=== PATIENT | male | born 1965 | race Two or more races ===

== ENCOUNTER 2020-09-25 12:38 | Outpatient (REF) | payer MEDICAID, OTHER, SELFPAY | END 2020-09-25 12:39 | disposition home or self-care (01) | LOC: HO.LAB 12:38 | PROVIDERS: Visit Provider Internal Medicine | DX: Z20.828 Contact with and (suspected) exposure to other viral communicable diseases (principal) | CPT/HCPCS: C9803; U0003 ==

== ENCOUNTER 2023-04-04 12:24 | Outpatient (REF) | payer MEDICAID, OTHER, SELFPAY ==
--- NOTE | ~2023-04-04 | XR_ITS ---
EXAMINATION: XR HAND, RIGHT CLINICAL INFORMATION: Pain. COMPARISON: None available. TECHNIQUE: PA and lateral views of the right hand. FINDINGS: Bony alignment and mineralization are normal. There is mild osteoarthritic change of the interphalangeal joint of the thumb, of the second, fourth and fifth distal interphalangeal joints, and of the second and third proximal interphalangeal joints. There is minimal osteoarthritic change of the second and third metacarpophalangeal joints. No fracture or dislocation is seen. The proximal and distal carpal rows are intact. No abnormal bone erosion is seen. There is no focal soft tissue swelling, gas or foreign body. XR/XR hand LT 2V IMPRESSION: Mild osteoarthritic change is seen of the fingers and hand, as detailed. No fracture or dislocation is seen. There is no abnormal bone erosion. EXAMINATION: XR HAND, LEFT CLINICAL INFORMATION: Pain. COMPARISON: None available. TECHNIQUE: PA and lateral views of the left hand. FINDINGS: Bony alignment and mineralization are normal. There is mild osteoarthritic change of the interphalangeal joint of the thumb. There is mild osteoarthritic change of the third through fifth distal interphalangeal joints and of the fourth and fifth metacarpophalangeal joints. No fracture or dislocation is seen. The proximal and distal carpal rows are intact. There is no abnormal bone erosion. No focal soft tissue swelling, gas or foreign body is seen. IMPRESSION: Mild osteoarthritic change is seen of the left fingers and hand, as detailed. No fracture or dislocation is seen. This no abnormal bony erosive change.
--- NOTE | ~2023-04-04 | XR_ITS ---
EXAMINATION: XR SHOULDER, RIGHT CLINICAL INFORMATION: Pain and limited range of motion of 6 months duration. COMPARISON: Radiographs dated 04/29/2015. TECHNIQUE: AP external rotation, Grashey, scapular Y, and axillary views of the right shoulder. FINDINGS: The bones and soft tissues are normal. No fracture. Glenohumeral and acromioclavicular alignment is anatomic with normal joint space. No abnormal soft tissue calcifications. XR/XR shoulder RT min 2V IMPRESSION: Normal right shoulder.
--- NOTE | ~2023-04-04 | XR_ITS ---
EXAMINATION: XR HAND, RIGHT CLINICAL INFORMATION: Pain. COMPARISON: None available. TECHNIQUE: PA and lateral views of the right hand. FINDINGS: Bony alignment and mineralization are normal. There is mild osteoarthritic change of the interphalangeal joint of the thumb, of the second, fourth and fifth distal interphalangeal joints, and of the second and third proximal interphalangeal joints. There is minimal osteoarthritic change of the second and third metacarpophalangeal joints. No fracture or dislocation is seen. The proximal and distal carpal rows are intact. No abnormal bone erosion is seen. There is no focal soft tissue swelling, gas or foreign body. XR/XR hand RT 2V IMPRESSION: Mild osteoarthritic change is seen of the fingers and hand, as detailed. No fracture or dislocation is seen. There is no abnormal bone erosion. EXAMINATION: XR HAND, LEFT CLINICAL INFORMATION: Pain. COMPARISON: None available. TECHNIQUE: PA and lateral views of the left hand. FINDINGS: Bony alignment and mineralization are normal. There is mild osteoarthritic change of the interphalangeal joint of the thumb. There is mild osteoarthritic change of the third through fifth distal interphalangeal joints and of the fourth and fifth metacarpophalangeal joints. No fracture or dislocation is seen. The proximal and distal carpal rows are intact. There is no abnormal bone erosion. No focal soft tissue swelling, gas or foreign body is seen. IMPRESSION: Mild osteoarthritic change is seen of the left fingers and hand, as detailed. No fracture or dislocation is seen. This no abnormal bony erosive change.
--- NOTE | ~2023-04-04 | XR_ITS ---
EXAMINATION: XR KNEE, RIGHT CLINICAL INFORMATION: Pain and weakness. COMPARISON: None available. TECHNIQUE: AP standing, lateral and axial views of the right knee are submitted. FINDINGS: No fracture or joint effusion. Alignment is anatomic. Joint spaces are maintained. No abnormal soft tissue calcification. XR/XR knee RT 3V IMPRESSION: Normal right knee.
== END 2023-04-04 12:25 | disposition home or self-care (01) ==
LOC: HO.HHCX 12:24
PROVIDERS: Visit Provider Internal Medicine
DX: M25.541 Pain in joints of right hand (principal); M25.542 Pain in joints of left hand; M25.531 Pain in right wrist; M25.532 Pain in left wrist; M25.511 Pain in right shoulder; M25.561 Pain in right knee
CPT/HCPCS: 73030; 73120; 73562

== ENCOUNTER 2023-04-25 09:04 | Outpatient (REF) | payer MEDICAID, OTHER, SELFPAY ==
[2023-04-25 11:50] LABS: MANUAL DIFF FLAG NO
[2023-04-25 12:12] LABS: Basophils Absolute Auto 0.1 X10*3/uL (0.0-0.2); Basophils Percent Auto 0.6 % (0-2); Eosinophils Absolute Auto 0.2 X10*3/uL (0.0-0.4); Eosinophils Percent Auto 2.4 % (0-4); Hematocrit 43.9 % (42.0-52.0); Hemoglobin 13.6 g/dl (14.0-18.0); Imm Gran Abs Auto 0.04 X10*3/uL (0.00-0.03); Imm Gran Pct Auto 0.5 % (0.0-0.4); Lymphocytes Absolute Auto 2.3 X10*3/uL (1.2-4.9); Lymphocytes Percent Auto 26.9 % (20-40); Mean Corpuscular Hemoglobin 26.3 pg (27.0-33.0); Mean Corpuscular Volume 84.9 fL (80.0-98.0); Mean Platelet Volume 10.8 fL (9.4-12.4); Monocytes Absolute Auto 0.8 X10*3/uL (0.1-1.2); Monocytes Percent Auto 8.9 % (2-11); Neutrophils Absolute Auto 5.2 x10*3/uL (2.0-8.3); Neutrophils Percent Auto 60.7 % (45-73); Platelet Count 372 X10*3/uL (160-400); Red Blood Count 5.17 X10*6/uL (4.60-5.80); Red Cell Distribution Width 13.7 % (11.0-16.0); White Blood Count 8.6 X10*3/uL (4.8-10.8)
[2023-04-25 12:51] LABS: Erythrocyte Sedimentation Rate 12 MM/HR (0-15)
[2023-04-25 12:54] LABS: HBS Num1 > 1000.00 mIU/mL (0-7.99); HBc Num1 0.37 S/CO (0.00-0.79); HBsAGNum1 0.34 S/CO (0.00-0.99); HIV AB/AG Nonreactive (Nonreactive); HIV Num 1 0.05 S/CO (0.00-0.99); Hepatitis A Antibody IgM 0.26 Index (0-0.79); Hepatitis B Core Antibody Nonreactive (Nonreactive); Hepatitis B Surface Antigen Negative (Negative); ~HepC Num1 0.08 S/CO (0.00-0.79); ~Hepatitis A Antibody IgM Nonreactive (Nonreactive); ~Hepatitis B Surface Antibody REACTIVE (Nonreactive); ~Hepatitis C Antibody Nonreactive (Nonreactive)
[2023-04-28 02:03] LABS: TS Negative Control Passed; TS Panel A 0; TS Panel B 0; TS Positive Control Passed; TSpotTB Negative (Negative)
== END 2023-04-25 09:05 | disposition home or self-care (01) ==
LOC: HO.HHCL 09:04
PROVIDERS: Visit Provider Internal Medicine
DX: Z11.4 Encounter for screening for human immunodeficiency virus [HIV] (principal); Z11.1 Encounter for screening for respiratory tuberculosis; M25.50 Pain in unspecified joint
CPT/HCPCS: 36415; 85025; 85652; 86481; 86704; 86706; 86709; 86803; 87340; 87389

== ENCOUNTER 2024-04-28 13:04 | Emergency (ER) | payer MEDICAID, OTHER, SELFPAY ==
--- NOTE | ~2024-04-28 | XR_ITS ---
EXAMINATION: XR HIP, LEFT CLINICAL INFORMATION: Pain. COMPARISON: None available. TECHNIQUE: AP view the pelvis as well as AP and frog-leg lateral views of the left hip. FINDINGS: No acute fracture or dislocation. Mild bilateral hip joint space narrowing with tiny marginal osteophytes. No osseous erosion. No abnormal soft tissue calcification. No evidence of femoral head avascular necrosis. XR/XR hip LT w PEL1V IMPRESSION: Mild bilateral hip osteoarthritis.
--- NOTE | 2024-04-28 13:07 | ED.GENADULT ---
HPI - General Adult General Chief complaint: Extremity Injury, Lower Stated complaint: L Leg Pain No Injury Time Seen by Provider: 04/28/24 13:51 Source: patient Mode of arrival: ambulatory Limitations: no limitations History of Present Illness ED Provider: Socorro Cunha APRN HPI narrative: 58-year-old male who is previously healthy presents the ER with complaints of left hip pain which began after he was stepping out of his car yesterday. Patient reports pain is worsened with lifting the left leg. There is no associated weakness, numbness or tingling of the extremity. Patient has been taking ibuprofen at home with continued pain Related Data Previous Rx's ?Medication ?Instructions ?Recorded cyclobenzaprine 10 mg tablet 10 mg PO TID PRN muscle spasm #15 04/28/24 tabs ibuprofen 600 mg tablet 600 mg PO Q6H PRN fever or pain 04/28/24 #30 tabs Allergies Allergy/AdvReac Type Severity Reaction Status Date / Time No Known Allergies Allergy Verified 04/28/24 13:10 Review of Systems Review of Systems: Yes all other systems are reviewed and are negative Constitutional: Constitutional: Reports no additional constitutional complaints, Denies body ache(s), Denies chills, Denies fever(s), Denies headache(s) and Denies weakness Eyes: Eyes: Reports no additional eye complaints and Denies change in vision ENT: Reports system reviewed and no additional complaints, except as documented, Denies dizziness, Denies headache(s), Denies nasal congestion, Denies nasal discharge and Denies neck pain Cardiovascular: Cardiovascular: Reports no additional cardiovascular complaints, Denies chest pain, Denies leg edema and Denies dyspnea Respiratory: Respiratory: Reports no additional respiratory complaints, Denies cough and Denies dyspnea Gastrointestinal: Gastrointestinal: Reports no additional gastrointestinal complaints, Denies abdominal pain, Denies diarrhea, Denies nausea and Denies vomiting Genitourinary: Genitourinary: Denies urinary incontinence Musculoskeletal: Musculoskeletal: Reports no additional musculoskeletal complaints, Denies back pain, Reports arthralgias, Denies joint swelling, Denies limited range of motion, Denies neck pain, Denies numbness and Denies tingling Integumentary/Breasts: Skin/Breast: Reports system reviewed and no additional complaints, except as docu and Denies rash Neurologic: Reports system reviewed and no additional complaints, except as documented, Denies Abnormal speech present, Denies dizziness, Denies headache(s), Denies numbness, Denies tingling and Denies weakness [facility] Past Medical History Attestation statement: The following information was validated with the patient. Source: old records reviewed and nursing notes reviewed Social History Social History Advance Directives: No Advance Directives Information Provided: No Physical Exam ED Vital Signs: Vital Signs - 24 hr 04/28/24 13:09 Temperature 98.7 F Pulse Rate 120 H Respiratory Rate 16 Blood Pressure 137/88 Pulse Oximetry 95 Oxygen Delivery Method Room Air BMI result Body Mass Index 28.2 Const General: cooperative, healthy appearing, comfortable and no acute distress Orientation/consciousness: patient oriented x3 Limitations: no limitations HENMT Head: Yes normal to inspection Ears: hearing grossly normal bilaterally General nose exam: Normal external nose present Face and sinus: Yes normal facial exam Mouth: Normal oral and palatal mucosa present Throat: Yes posterior oropharynx normal Eyes General: appearance normal, both eyes and all related structures Pupils: Equal, round and reactive pupils present Neck Neck: Yes normal visual inspection Chest Chest palpation & inspection: normal inspection of the chest Resp Effort & Inspection: normal respiratory effort Auscultation: clear to auscultation bilaterally Cardio Rate: regular rate Rhythm: regular rhythm Peripheral pulses: Peripheral pulses 2+ throughout GI Inspection: Yes normal to inspection Palpation (GI): Soft to palpation and nontender Auscultation: normal bowel sounds General: Yes no CVA tenderness Back/Spine/Pelvis Back: no CVA tenderness Thoracic/Lumbar Spine: thoracic and lumbar spine normal to inspection Skin General skin exam: no rashes or lesions noted Neuro General: patient oriented x3, no focal motor deficits and normal sensation to monofilament Cranial nerves: Yes Equal, round and reactive pupils present Cognition (Neuro): normal cognition Speech: No Abnormal speech present Gait exam (Neuro): Normal gait present Motor exam (neuro): 5/5 motor strength present throughout Extrem Other: There is pain on palpation of the left anterior hip which is worsened with left straight leg raise as well as lifting of the left thigh with flexion of the left knee. There is no shortening, rotation deformity. There are normal DP and PT pulses distally. Normal distal sensation. General: Yes normal to inspection Course Course Course Narrative: RME performed by Zaira Jones PA-C. Patient is a 58 year old assigned male at presenting to the emergency department with left hip / groin pain. Detailed physical exam and review of systems are deferred to the advertising agent. Imaging ordered. Patient placed back in the waiting room pending room availability and results. Reevaluation(s) Reevaluation #1: X-ray shows bilateral osteoarthritis. Exam is more consistent with hip flexor strain. Patient will be discharged home with NSAID and muscle relaxant. Reviewed worrisome signs and symptoms of when to return to the emergency room. Comfortable plan for discharge home. Medical Decision Making Medical Decision Making MDM Narrative: 58-year-old male who is previously healthy presents the ER with complaints of left hip pain which began after he was stepping out of his car yesterday. Patient reports pain is worsened with lifting the left leg. There is no associated weakness, numbness or tingling of the extremity. Patient has been taking ibuprofen at home with continued pain there is pain on palpation of the left anterior hip which is worsened with left straight leg raise as well as lifting of the left thigh with flexion of the left knee. There is no shortening, rotation deformity. There are normal DP and PT pulses distally. Normal distal sensation. Likely hip flexor strain. Will check x-rays due to history of trauma Differential Diagnosis Differential Diagnoses: The differential diagnosis associated with the presentation includes Hip flexor strain Less likely fracture, dislocation, vascular injury Admission/Observation Consideration of admission/observation: Escalation of care including admission/observation considered Hip flexor strain Less likely fracture, dislocation, vascular injury requiring advanced imaging, urgent orthopedic consultation Independent Interpretation I performed an independent interpretation of an: Plain X-Ray Interpretation: I independently reviewed the x-ray and agree with the radiology report Radiology Impression Discussion of test interpretation with radiology: I have reviewed the radiologist's reading. Radiologist Impression: [address] [address] XRay Report Signed Patient: Javed Dorantes MR#: [id number] : 1965 Acct:[id number] Age/Sex: 58 / M ADM Date: 04/28/24 Loc: HO.ED Attending Dr: Ordering Physician: Zaira Jones Date of Service: 04/28/24 Procedure(s): XR hip LT w PEL1V Accession Number(s): [id number] cc: Zelda Funez MD; Zaira Jones~ EXAMINATION: XR HIP, LEFT CLINICAL INFORMATION: Pain. COMPARISON: None available. TECHNIQUE: AP view the pelvis as well as AP and frog-leg lateral views of the left hip. FINDINGS: No acute fracture or dislocation. Mild bilateral hip joint space narrowing with tiny marginal osteophytes. No osseous erosion. No abnormal soft tissue calcification. No evidence of femoral head avascular necrosis. XR/XR hip LT w PEL1V IMPRESSION: Mild bilateral hip osteoarthritis. Tests considered The following testing was considered but not selected: Less likely fracture, dislocation, vascular injury requiring advanced imaging, Prescription Management I considered prescription management with: Pain Medication Discharge Plan Discharge Clinical Impression: Strain of flexor muscle of left hip Patient Disposition: Home, Self-Care Instructions: Groin Strain (ED) Additional Instructions: Heat or ice to the area Gentle stretching Take medications as prescribed Follow-up with your doctor for any continued symptoms Prescriptions: New ibuprofen 600 mg tablet 600 mg PO Q6H PRN (Reason: fever or pain) Qty: 30 0RF cyclobenzaprine 10 mg tablet 10 mg PO TID PRN (Reason: muscle spasm) Qty: 15 0RF Print Language: Sinhala
[2024-04-28 13:09] VITALS: BP 137/88; PULSE 120; RESP 16; TEMP 37.1; O2SAT 95; BMI 28.2
[2024-04-28 14:56] VITALS: BP 130/81; PULSE 100; RESP 19; TEMP 36.4; O2SAT 98
[2024-04-28 14:59] VITALS: BP 130/81; PULSE 100; RESP 19; TEMP 36.4; O2SAT 98
== END 2024-04-28 15:00 | disposition home or self-care (01) ==
PROVIDERS: Emergency Provider Emergency Medicine; PCP Internal Medicine
DX: S76.012A Strain of muscle, fascia and tendon of left hip, initial encounter (principal); X50.9XXA Other and unspecified overexertion or strenuous movements or postures, initial encounter; Y93.89 Activity, other specified; Y92.810 Car as the place of occurrence of the external cause; Y99.9 Unspecified external cause status
CPT/HCPCS: 73502; 99283

== ENCOUNTER 2025-01-07 11:01 | Outpatient (REF) | payer MEDICAID, OTHER, SELFPAY ==
[2025-01-07 12:34] LABS: MANUAL DIFF FLAG NO
--- OUTSIDE RECORDS SUMMARY | 2025-01-07 12:34 | XMS_ITS | Encounter Summary ---
Author Organization [facility] Address [address] [place] [address] Care Team Providers Care Warehouse Shipping Receiving Clerk Name Role Phone Zelda Funez MD Primary Care Provider + Encounter Details Date Type Department Care Team (Latest Contact Info) Description 02/23/2022 Abstract [facility] CONVERSIONS Dental, Provider, DDS Social History Tobacco Use Types Packs/Day Years Used Date Smoking Tobacco: Never Assessed Sex and Gender Information Value Date Recorded Sex Assigned at Male 08/09/2022 10:19 AM EDT Legal Sex Male 10:19 AM EDT Gender Identity Male 08/09/2022 10:19 AM EDT Sexual Orientation Straight 08/09/2022 10 :19 AM EDT documented as of this encounter Plan of Treatment Upcoming Encounters Date Type Department Care Team (Late st Contact Info) Description 06/04/2025 1:00 PM EDT Office Visit [facility] [address] [place] [address] Jacob, Jolene [address] [place] [address] documented as of this encounter Visit Diagnoses Not on filedocumented in this encounter Care Teams Warehouse Shipping Receiving Clerk Relationship Specialty Start Date End Date Zelda Funez MD [address], [place] [phone] PCP - General Family Medicine 06/19/18 documented as of this encounter
--- OUTSIDE RECORDS SUMMARY | 2025-01-07 12:34 | XMS_ITS | Clinical Summary ---
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 Do not crush, chew, or split. 120 tablet 1 3 Active meloxicam (Mobic) 15 MG tabletIndications :Polyarthralgia TAKE 1 TABLET(15 MG) BY MOUTH IN THE MORNING 30 tablet 3 Active cholecalciferol (Vitamin D-3) 50 MCG (1999 UT) tablet Take 1 tablet by mouth in the morning. 4 Active methotrexate 2.5 MG tablet Take 20 mg by mouth 1 (one) time per week. 4 Active folic acid (Folvite) 1 MG tablet Take 1 mg by mouth Once per day. 3 Active amLODIPine-valsar matthews (Exforge) 5-160 MG tabletIndications :Essential hypertension TAKE 1 TABLET BY MOUTH EVERY DAY 90 tablet 3 5 Active Active Problems Problem Noted Date Diagnosed Date Dizziness 12/31/2024 Assessment & Plan (12/31/2024 10:30 AM EDT): Patient had hyperglycemia today despite being fasting. I explained regarding importance of a small infection meals, avoid recurrent fasting., Favor small unfractioned meals that contain both protein and fiber, lower carbohydrate consumption and improve hydration. Advised to check blood pressure at home and call back as needed symptoms or low BP below 100/60 Primary osteoarthritis of left hip 05/07/2024 Assessment & Plan (05/07/2024 1:07 PM EDT): It seems to have resolved with 1w NSAIDs Continue meloxicam for at least 1w with prn exacerbations or can take Tylenol I explained to him that this is different than his RA. Re consult prn, may need referral to PT if he becomes more symptomatic. Rheumatoid arthritis involvi ng multiple sites with positive rheumatoid factor 12/13/2023 Assessment & Plan (12/31/2024 10:31 AM EDT): Doing well on Methotrexate + Folic acid. Follow-up with rheumatology Advised regarding zoster vaccine and MMR booster due to potential immunosuppression with methotrexate he will follow-up at the closest pharmacy Assessment & Plan (12/13/2023 1:22 PM EST): Doing well on Methotrexate + Folic acid. Continue Prednisone x2 weeks and follow up with Rheumatology. Will have Tdap today, declined Zoster and COVID vaccines. Partial loss of teeth 06/14/2023 Dental calculus 05/17/2023 Localized gingival recession 05/17/2023 Lipoma of neck 04/04/2023 Assessment & Plan (04/04/2023 1:24 PM EDT): Will fu at next appointment consider referral to surgery if increase in size Chronic pain of right knee 04/04/2023 Chronic right shoulder pain 04/01/2023 Mass of neck 04/01/2023 Vitamin D deficiency 07/25/2018 Assessment & Plan (12/31/2024 10:30 AM EDT): On vitamin D supplementation daily. Follow-up vitamin D levels in 3 months and follow-up with rheumatology. Assessment & Plan (05/02/2023 1:16 PM EDT): Needs vit d supplementation for three months only Benign essential hypertension 08/30/2017 Assessment & Plan (12/31/2024 9:57 AM EDT): Controlled. Compliant w/meds Continue amlodipine/valsartan Counseled re low salt diet/increase moderate physical activity. Check home BP BIW and prn CP/LANDAVERDE/NAIR Non smoking patient. FU in 6m Assessment & Plan (05/07/2024 1:06 PM EDT): Controlled. Compliant w/meds Continue amlodipine/valsartan Counseled re low salt diet/increase moderate physical activity. Check home BP BIW and prn CP/LANDAVERDE/NAIR Non smoking patient. FU in 6m Assessment & Plan (12/13/2023 10:16 AM EST): Stage I. Likely related to Prednisone. Will follow up with me in 3-4 months. Counseled to check BP at home. Call back prn if BP is above 150/100 Assessment & Plan (07/26/2023 12:52 PM EDT): Controlled. Compliant w/meds Continue amlodipine - valsartan same dose Counseled re low salt diet/increase moderate physical activity. Check home BP BIW and prn CP/LANDAVERDE/NAIR Non smoking patient. Assessment & Plan (05/02/2023 1:16 PM EDT): Stage 1/borderline uncontrolled today Counseled re low salt diet/increase moderate physical activity. Check home BP BIW and prn CP/LANDAVERDE/NAIR Non smoking patient. Continue amlodipine/valsartan same dose and FU with me in 3 months Assessment & Plan (04/04/2023 1:25 PM EDT): Borderline controlled, pt to check BP twice per week and fu with me in 1 month with labs Continue medications. Counseled re low salt diet/increase moderate physical activity. Check home BP BIW and prn CP/LANDAVERDE/NAIR Non smoking patient. Seasonal allergic rhinitis 08/30/2017 Resolved Problems Problem Noted Date Diagnosed Date Resolved Date Chronic pain of both wrists 04/04/2023 05/07/2024 Right anterior shoulder pain 04/04/2023 05/07/2024 Joint pain in both hands 04/04/2023 Polyarthralgia 04/04/2023 05/07/2024 Assessment & Plan (07/26/2023 12:54 PM EDT): Seems to be related to RA, major compromise in both hands Intake carmita with rheumatology next month Received Influenza, advised about zoster booster, and declined Covid IZ today Assessment & Plan (05/02/2023 1:04 PM EDT): most likely RA. It sewems to be controlled with NSAIDS only for now COntinue NSAIDS for two more months and FU PRN with me. APpointment for [facility]am[facility] at [facility] scheduled for 08/05/23 at 1 pm. Pt is aware that he may need to arrange for transportation, will see if we can submit transportation request. FU with me in 3 months Assessment & Plan (04/04/2023 1:26 PM EDT): r/o RA given symmmetric arthiris on both hands order x-rays of both hands take tylenol 650-1300mg BID x2 weeks then PRN prevention of accidents, wear gloves at work Encounters Date Type Department Care Team Description 12/31/2024 9:45 AM EDT Office Visit [facility] [address] [place] [phone] Zelda Funez MD Benign essential hypertension (Primary Dx); Rheumatoid arthritis involving multiple sites with positive rheumatoid factor (CMS/HCC); Vitamin D deficiency; Dizziness 12/31/2024 Telephone [facility] [address] [place] [phone] Zelda Funez MD Lab Orders 12/31/2024 Travel 12/24/2024 Patient Outreach [facility] [address] [place], [place] [phone] Zelda Funez MD Pre-visit Planning (SDOH negative, Tobacco screening negative.) 12/03/2024 1:00 PM EST Office Visit [facility] [address] [place] [address] [phone] Jolene James Dental calculus (Primary Dx) 11/05/2024 Refill [facility] [address] [place] [address] Zelda Funez MD Essential hypertension 11/02/2024 Telephone [facility] [address] [place] [address] Marie Felix MA Chart prep 10/24/2024 Patient Outreach [facility] [address] [place] [address] Zelda Funez MD Pre-visit Planning ((Unable to reach for PVP screening, LVM)) from Last 3 Months Immunizations Name Administration Dates Next Due Hep B, adult 05/01/2010,12/31/2008,12/03/2008 Influenza injectable quadriv alent IIV4 with preservative 07/25/2018,08/30/2017,07/29/2015 Influenza injectable quadriv alent preservative free 07/26/2023,08/21/2019,12/06/2016 Influenza, IIV3, injectable 08/19/2014, 1 Influenza, Split (incl. frank fied surface antigen) 09/19/2012 MMR 07/25/2007 TD (adult), 2 Lf tetanus tox oid, preservative free, adsorbed 12/13/2023 Tdap 11/07/2012 Varicella 04/15/2009,12/03/2008 Social History Tobacco Use Types Packs/Day Years Used Date Smoking Tobacco: Never Smokeless Tobacco: Never Tobacco Cessation:Counseling Given: Not Answered Alcohol Use Standard Drinks/Week Comments Yes 0 (1 standard drink = 0.6 oz pur e alcohol) oca Housing Stability Answer Date Recorded What is your housing situation today? I have jamarcus robles 04/27/[address] you li ve. Do you have problems with any of the following? None of the above 04/27/2024 Food Insecurity Answer Date Recorded Within the past 12 months, y ou worried that your food would run out before you got money to buy more: Never True 04/27/2024 Within the past 12 months,th e food you bought just didn't last and you didn't have enough money to get more: Never True Transportation Answer Date Recorded In the past 12 months, has l ack of transportation kept you from medical appts, meetings, work or from getting things needed for daily living? No 04/27/2024 Utilities Answer Date Recorded In the past 12 months, has t he electric, gas, oil or water company threatened to shut off services in your home? No 04/27/2024 Depression Answer Date Recorded Patient Health Questionnaire-2 Score 0 04/04/2023 Internet Access Answer Date Recorded Internet Access Q1 Yes 06/11/2024 Internet Access Q2 Not on file 06/11/2024 Sex and Gender Information Value Date Recorded Sex Assigned at Male 08/09/2022 10:19 AM EDT Legal Sex Male 10:19 AM EDT Gender Identity Male 08/09/2022 10:19 AM EDT Sexual Orientation Straight 08/09/2022 10 :19 AM EDT Last Filed Vital Signs Vital Sign Reading Time Taken Comments Blood Pressure 149/84 12/31/2024 9:32 AM EDT Pulse 84 12/31/2024 9:32 AM EDT Temperature 35.9 ??C (96.7 ??F) 12/31/2024 9:32 AM ED T Respiratory Rate 16 05/07/2024 11:01 AM EDT Oxygen Saturation 100% 12/31/2024 9:32 AM EDT Inhaled Oxygen Concentration - - Weight 88.5 kg (195 lb) 12/31/2024 9:32 AM EDT Height 167.6 cm (5' 6 ) 12/31/2024 9:32 AM EDT Body Mass Index 31.47 12/31/2024 9:32 AM EDT Plan of Treatment Upcoming Encounters Date Type Department Care Team (Late st Contact Info) Description 06/04/2025 1:00 PM EDT Office Visit [facility] [address] [place] [address] Jacob, Jolene [address] [place] [address] Health Maintenance Due Date Last Done Comments CT Colonography 1967 Colonoscopy 1967 Colorectal Cancer Screening 1967 FIT DNA/Cologuard 1967 FIT 1967 FOBT 1967 Sigmoidoscopy 1967 Alcohol/Substance Use Screening 1979 Pneumococcal Vaccine: 50+ Years (1 of 1 - PCV) 12/24/2017 Zoster Vaccines (1 of 2) 12/24/2017 Depression Screening 04/04/2024 04/04/2023, 04/04/20 COVID-19 Vaccine (3 - 2023- season) 2024 02/24/2021, 01/27/2021 Dental Oral Exam 11/30/2024 05/29/2024, 02/2023, 02/23/2022, Additional history exists Dental X-Ray: Bitewings 05/30/2025 05/29/20 24, 05/17/2023, 02/23/2022, Additional history exists Dental Prophylaxis 06/03/2025 12/03/2024, 0 05/29/2024, 05/17/2023, Additional history exists SDOH Screening 12/24/2025 12/24/2024 Tobacco Screening 12/31/2025 12/31/2024 Dental X-Ray: Full Mouth 05/18/2026 023, 02/23/2022, 04/21/2015 Lipid Panel 09/07/2026 09/07/2021, 04/01/2020 DTaP/Tdap/Td Vaccines (3 - Td or Tdap) 12/12/2033 12/13/2023, 11/07/2012 RSV Patients and Patients Aged 60 years or older (1 - 1-dose 75+ series) 12/24/2042 Hepatitis B Vaccines Completed 05/01/2010, 12/31/2008, 12/03/2008 HIV Screening Completed 04/25/2023 Hepatitis C Screening Completed 04/25/2023 Influenza Vaccine Completed 09/19/2024, , 08/21/2019, Additional history exists HIB Vaccines Aged Out No longer eligi ble based on patient's age to complete this topic HPV Vaccines Aged Out No longer eligi ble based on patient's age to complete this topic Hepatitis A Vaccines Aged Out No long er eligible based on patient's age to complete this topic IPV Vaccines Aged Out No longer eligi ble based on patient's age to complete this topic Meningococcal Vaccine Aged Out No radhika chito eligible based on patient's age to complete this topic RSV under 20 months Aged Out No longe r eligible based on patient's age to complete this topic Rotavirus Vaccines Aged Out No longer eligible based on patient's age to complete this topic Procedures Procedure Name Priority Date/Time Associated Diagnosis Comments POCT HEMOGLOBIN Routine 12/31/2024 10:18 AM EDT Dizziness POCT GLUCOSE Routine 12/31/2024 10:18 AM EDT Dizziness CASE PRESENTATION, DETAILED AND EXTENSIVE TREATMENT PLANNING Routine 12/03/2024 1:00 PM EST Dental calculus ORAL HYGIENE INSTRUCTIONS Routine 12/03/2024 1:00 PM EST Dental calculus PROPHYLAXIS - ADULT Routine 12/03/2024 1 :00 PM EST Dental calculus BITEWINGS - 4 RADIOGRAPHIC IMAGES Routine 05/29/2024 10:00 AM EDT Partial loss of teeth, unspecified edentulism class Dental calculus Localized gingival recession PERIODIC ORAL EVALUATION - ESTABLISHED PATIENT Routine 05/29/2024 10:00 AM EDT INTRAORAL - COMPLETE SERIES OF RADIOGRAPHIC IMAGES Routine 05/17/2023 1:00 PM EDT Dental calculus Localized gingival recession HEPATITIS PANEL, GENERAL Routine 04/25/2023 9:09 AM EDT Polyarthralgia HIV ANTIBODY/ANTIGEN ([place] DPH) Routine 04/25/2023 9:09 AM EDT Polyarthralgia LIPID PANEL, STANDARD Routine 09/07/2021 10:00 AM EST from Last 3 Months or Most Recently Relevant to Health Maintenance Results * POCT Glucose (12/31/2024 10:18 AM EDT) Glucose Blood, POC 135 60 - 200 mg/dL QC Media Lot # [id number] Lot# Expiration Date 101,425 Blood Capillary blood specimen / Unknown 12/31/2024 10:18 AM EDT Zelda Funez MD POINT OF CARE TE ST ENTER/EDIT ORDERABLES Edited Result - Final * POCT Hemoglobin (12/31/2024 10:18 AM EDT) Hemoglobin 13.9 13.0 - 17.0 QC Media Lot # [id number] Lot# Expiration Date Blood 12/31/2024 10:1 8 AM EDT Zelda Funez MD POINT OF CARE TEST ENTER /EDIT ORDERABLES Final Result * HIV Ab/Ag ([facility]) (04/25/2023 9:09 AM EDT) Pathologist [facility] HIV AB/AG Nonreactive Nonreactive [facility] Comment:HIV-1 p24 Ag and/or HIV-1/HIV-2 Ab not detected.A test result that is nonreactive does not exclude thepossibility of exposure to or infection with HIV-1 and/orHIV-2. Nonreactive results in this assay for individualswith prior exposure to HIV-1 and/or HIV-2 may be due toantigen and antibody levels that are below the limit ofdetection of this assay.The Beck Prepress Operator HIV Ag/Ab Combo assay result andsupplemental assay results should be interpreted inconjunction with the patient's clinical presentation,history and other laboratory results. If the results areinconsistent with clinical evidence, additional testing issuggested to confirm the result. 04/25/2023 9:09 AM EDT 04/25/2023 11:44 AM EDT Result [facility] External Provider LAB BLO OD ORDERABLES Final Result [facility] [address] [place] [phone] * Hepatitis Panel, General (04/25/2023 9:09 AM EDT) Pathologist [facility] Hepatitis A IgM Nonreactive Nonreactive [facility] Comment:IgM antibodies to LANDAVERDE V not detected; does not exclude earlyacute or recovered HAV infection. ~Hepatitis B Surface Antibody REACTIVE Nonreactive [facility] Comment:REACTIVE: > 11.99 mI U/mL Hepatitis B Core Antibody Nonreactive Nonreactive [facility] Hepatitis C Antibody Nonreactive Nonreactive [facility] Comment:Antibodies to HCV no t detected; does not exclude early acuteHCV infection. Hepatitis B Surface Ag Negative Negative [facility] 04/25/2023 9:09 AM EDT 04/25/2023 11:44 AM EDT [facility] External Provider LAB BLO OD ORDERABLES Final Result Performing Organization Address [facility]/ZIP Co de Phone Number [facility] [address] [place] [phone] * (ABNORMAL) LIPID PANEL, STANDARD (09/07/2021 10:00 AM EST) Chol/HDLC Ratio 4.6 <5.0 (calc) [facility] Cholesterol, Total 185 <200 mg/dL [facility] HDL Cholesterol 40 > OR = 40 mg/dL [facility] LDL Cholesterol 119(H) mg/dL (calc) [facility] Comment: Reference range: <100 ?? Desirable range <100 mg/dL for primary prevention; ?? <70 mg/dL for patients with CHD or diabetic patients ?? with > or = 2 CHD risk factors. ?? LDL-C is now calculated using the Dawson-Monzon ?? calculation, which is a validated novel method providing ?? better accuracy than the Friedewald equation in the ?? estimation of LDL-C. ?? Dawson NUNEZ et al. AXEL. 2013;310(19): 3058-3139 ?? (http://education.Virtustream.MedSocket/faq/WLK869) Non-HDL Cholesterol 145(H) <130 mg/dL (calc) [facility] Comment: For patients with diabetes plus 1 major ASCVD risk ?? factor, treating to a non-HDL-C goal of <100 mg/dL ?? (LDL-C of <70 mg/dL) is considered a therapeutic ?? option. 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
--- OUTSIDE RECORDS SUMMARY | 2025-01-07 12:34 | XMS_ITS | Encounter Summary ---
Author Organization [facility] Address [address] [place] [address] Care Team Providers Care Qa Specialist Name Role Phone ArminZelda beyer Primary Care Provider [phone] Encounter Details Date Type Department Care Team (Late st Contact Info) Description 12/31/2024 Telephone [facility] [address], [place] [phone] Drycleaner: Kathy Hines Telephone Intake, Staff Social History Tobacco Use Types Packs/Day Years Used Date Smoking Tobacco: Never Passive Smoke Exposure: Never Smokeless Tobacco: Never Comments:: Alcohol Use Standard Drinks/Week Comments Yes 0 (1 standard drink = 0.6 oz pur e alcohol) occ Sex and Gender Information Value Date Recorded Sex Assigned at Male 03/12/2024 9:55 AM EDT Legal Sex Male 6:50 PM EDT Gender Identity Not on file Sexual Orientation Not on file documented as of this encounter Miscellaneous Notes * Telephone Encounter - Musa Medina LPN - 01/01/2025 3:04 PM EDT Labs faxed to Dr. Funez's office (fax [phone]). Providers office notified * Telephone Encounter - Maryam Morrow - 12/31/2024 10:10 AM EDT [facility] calling to ask provider Curtis which specific labs are needed. Please call providers office back at [phone] Thank you - PAC documented in this encounter Plan of Treatment Upcoming Encounters Date Type Department Care Team (Late st Contact Info) Description 03/18/2025 10:00 AM EDT Follow-Up [facility] [address] [place] [address] Drycleaner: Moe Ordoñez DO [address] [facility] [place] [address] documented as of this encounter Visit Diagnoses Not on filedocumented in this encounter Care Teams Qa Specialist Relationship Specialty Start Date End Date Zelda Funez [address] [place] [address] PCP - General Internal Medicine 05/02/23 documented as of this encounter
--- OUTSIDE RECORDS SUMMARY | 2025-01-07 12:34 | XMS_ITS | Clinical Summary ---
Author Organization [facility] Address [address] [place] [address] Care Team Providers Care Grain Distributor Name Role Phone Armin Renetta Primary Care Provider Allergies No known active allergies Medications amLODIPine (NORVASC) 5 mg tablet Take 5 mg by mouth daily. Active folic acid (FOLVITE) 1 mg tablet Take 1 tablet (1 mg total) by mouth once a day. 90 tablet 1 4 Active cholecalcifero l (VITAMIN D3) 2,000 unit tablet Take 1 tablet (2,000 Units total) by mouth once a day. 90 tablet 1 4 Active methotrexate (TREXALL) 2.5 mg tablet TAKE 8 TABLETS BY MOUTH ONCE WEEKLY 96 tablet 5 Active methotrexate (TREXALL) 2.5 mg tablet Take 8 tablets (20 mg total) by mouth once a week. 96 tablet 4 12/28/19 25 Discontinued Active Problems Problem Noted Date Diagnosed Date Recurrent umbilical hernia 12/13/2016 Extensor tenosynovitis of right wrist 10/13/2015 Generalized osteoarthritis of multiple sites Rotator cuff tendonitis 07/28/2015 Tennis elbow, right 07/28/2015 Pes cavus, congenital 06/17/2015 Achilles tendonitis 06/17/2015 Bilateral foot pain 06/17/2015 History of pain when walking 06/17/2015 Encounters Date Type Department Care Team Description 12/31/2024 Telephone [facility] [address], [place] [phone] Offset Second Press Operator: Kathy Hines Telephone Intake, Staff 12/21/2024 Refill [facility] [address] [place] [address] Offset Second Press Operator: Moe Ordoñez DO High risk medication use (Primary Dx) 10/09/2024 Orders Only [facility] [address] [place] [address] Offset Second Press Operator: Moe Ordoñez DO from Last 3 Months Immunizations Immunization Administration Dates Next Due Influenza, Trivalent, Adjuvanted, PF 09/19/2024 Family History Medical History Relation Name Comments Other Father Family history of No pertinent family history Other Mother Family history of No pertinent family history Relation Name Status Comments Father Mother Social History Tobacco Use Types Packs/Day Years [...] on file Sexual Orientation Not on file Last Filed Vital Signs Vital Sign Reading Time Taken Comments Blood Pressure 126/79 09/19/2024 10:27 AM EST Pulse 74 09/19/2024 10:27 AM EST Temperature 36.4 ??C (97.6 ??F) 09/19/2024 10:[address] Respiratory Rate - - Oxygen Saturation - - Inhaled Oxygen Concentration - - Weight 90.4 kg (199 lb 6.4 oz) 09/19/2024 10:27 AM EST Height 167.6 cm (5' 6 ) 05/21/2024 9:40 AM EDT Body Mass Index 32.18 05/21/2024 9:40 AM EDT Plan of Treatment Upcoming Encounters Date Type Department Care Team (Late st Contact Info) Description 03/18/2025 10:00 AM EDT Follow-Up [facility] [address] [place] [address] Offset Second Press Operator: Moe Ordoñez DO [address] [place] [address] Health Maintenance Due Date Last Done Comments Cologuard 1967 Colon Cancer Screening 1967 Colonoscopy 1967 FOBT / Fit Test 1967 HIV Screening 1967 Sigmoidoscopy 1967 Pneumococcal Vaccine: 50+ Ye ars (1 of 1 - PCV) 12/24/2017 Zoster Vaccines (1 of 2) 12/24/2017 04/15/2009, 11/11 Basic Metabolic Panel 04/16/2024 04/16/2023, 017 COVID-19 Vaccine (3 - 2023-2 5 season) 2024 02/24/2021, 01/27/2021 Alcohol/Substance Use Screening 10/10/2024 Depression Screening and Follow-Up 10/10/2024 Social Drivers of Health Tyra ual Screening 10/10/2024 DTaP,Tdap,and Td Vaccines (3 - Td or Tdap) 12/12/2033 12/13/2023, 11/07/2012 RSV Vaccine (60+ years old a nd patients) (1 - 1-dose 75+ series) 12/24/2042 Hepatitis B Vaccines Completed 05/01/2010, 12/31/2008, 12/03/2008 Hepatitis C Screening Completed 08/29/2023 Influenza Vaccine Completed 09/19/2024, , 08/21/2019, Additional history exists Procedures * Due to [place] law, this organization might not be sharing negative HIV tests. Procedure Name Priority Date/Time Associated Diagnosis Comments HEPATITIS C ANTIBODY W/REFLEX TO HCV RNA, QUANTITATIVE PCR Routine 08/29/2023 3:43 PM EST High risk medication use BASIC METABOLIC PANEL Routine 01/27/2017 8:21 AM EDT from Last 3 Months or Most Recently Relevant to Health Maintenance Results * Due to [place] law, this organization might not be sharing negative HIV tests. * Hepatitis C Antibody w/Reflex to HCV RNA, Quantitative PCR (08/29/2023 3:43 PM EST) Hepatitis C Antibody NON-REACT VERN NON-REACT VERN 08/30/2023 3:07 AM EST [employer] Comment: HCV antibody was non-reactive. There is no laboratory evidence of HCV infection. In most cases, no further action is required. However, if recent HCV exposure is suspected, a test for HCV RNA (test code 91087) is suggested. For additional information please refer to http://education.FlyCast/faq/RUB23a8 (This link is being provided for informational/ educational purposes only.) Blood Structure of peripheral vein / Unknown Venipuncture / Unknown 08/29/2023 3:43 PM EST 08/29/2023 4:43 PM EST [facility] JOHNNY DAVY - 08/30/2023 3:07 AM EST [facility] Received Date: us Moe Acevedo DO LAB BLOOD ORDERABLES Final Res ult [facility] [address] [facility] 3[address], [place] [address], [facility] [address] [facility] [address] [facility] [address], [place] [address], * (ABNORMAL) Basic Metabolic Panel (01/27/2017 8:21 AM EDT) Pathologist [facility] Sodium Blood 140 135 - 145 mmol/L [facility] Potassium Blood 4.2 3.5 - 5.3 mmol/L [facility] Chloride Blood 106 97 - 110 mmol/L [facility] Carbon Dioxide 29 24 - 32 mmol/L [facility] Gap 5 5 - 15 [facility] Glucose 105(H) 70 - 99 mg/dL [facility] BUN 18 7 - 23 mg/dL [facility] Creatinine 0.69 0.60 - 1.30 mg/dL [facility] eGFR Non- >60 >60 [facility] Comment: Units = mL/min/1.73 m2 Glomerular Filtration Rate (GFR) is estimated based on the IDMS-Traceable MDRD equation(NKDEP).For Americans multiply results by 1.210. Patients with CKD exhibit values less than 60mL/min/1.73 m2, while results less than 15mL/min/1.73 m2 are consistent with kidney failure. This MDRD equation is not recommended by NKDEP for drug-dosing purposes or for children below 18 years of age. Calcium Blood 9.6 8.7 - 10.7 mg/dL [facility] 01/27/2017 8:21 AM EDT 01/27/2017 9:11 AM EDT us Robert Lemos MD LAB BLOOD ORDERABLES Final Res ult [facility] [address] [place] [address], from Last 3 Months or Most Recently Relevant to Health Maintenance Insurance [facility]/FREE CARE Care Teams Grain Distributor Relationship Specialty Start Date End Date Zelda Funez [address] [place] [id number] PCP - General Internal Medicine 05/02/23
--- OUTSIDE RECORDS SUMMARY | 2025-01-07 12:34 | XMS_ITS | Encounter Summary ---
Author Organization [employer] [facility] Address [address] [facility] 7t [place] [address] Care Team Providers Care Ore Smelter Name Role Phone Zelda Funez MD Primary Care Provider + Reason for Visit * Reason Onset Date Comments Reschedule 11/08/2023 Encounter Details Date Type Department Care Team ([facility] st Contact Info) Description 11/08/2023 Telephone [facility] [address] [place], [place] [phone] Zelda Funez MD [address] [place], [place] [phone] Reschedule Social History Tobacco Use Types Packs/Day Years Used Date Smoking Tobacco: Never Smokeless Tobacco: Never Alcohol Use Standard Drinks/Week Comments Yes 0 (1 standard drink = 0.6 oz pur e alcohol) oca Housing Stability Answer Date Recorded What is your housing situation today? I have jamarcus robles 07/25/[address] you li ve. Do you have problems with any of the following? None of the above 07/25/2023 Food Insecurity Answer Date Recorded Within the past 12 months, y ou worried that your food would run out before you got money to buy more: Never True 07/25/2023 Within the past 12 months,th e food you bought just didn't last and you didn't have enough money to get more: Never True Transportation Answer Date Recorded In the past 12 months, has l ack of transportation kept you from medical appts, meetings, work or from getting things needed for daily living? No 07/25/2023 Utilities Answer Date Recorded In the past 12 months, has t he electric, gas, oil or water company threatened to shut off services in your home? No 07/25/2023 Depression Answer Date Recorded Patient Health Questionnaire-2 Score 0 04/04/2023 Sex and Gender Information Value Date Recorded Sex Assigned at Male 08/09/2022 10:19 AM EDT Legal Sex Male 10:19 AM EDT Gender Identity Male 08/09/2022 10:19 AM EDT Sexual Orientation Straight 08/09/2022 10 :19 AM EDT documented as of this encounter Miscellaneous Notes * Telephone Encounter - Raquel Granados - 11/08/2023 12:11 PM EST Tc from pt requesting r/s appt 11/14/2023 documented in this encounter Plan of Treatment Upcoming Encounters Date Type Department Care Team (Late st Contact Info) Description 06/04/2025 1:00 PM EDT Office Visit [facility] [address] [place] [address] Jacob, Jolene [address] [place] [address] documented as of this encounter Visit Diagnoses Not on filedocumented in this encounter Care Teams Ore Smelter Relationship Specialty Start Date End Date Zelda Funez MD [address] [place] [address] PCP - General Family Medicine 06/19/18 documented as of this encounter
--- OUTSIDE RECORDS SUMMARY | 2025-01-07 12:34 | XMS_ITS | Encounter Summary ---
Author Organization [facility] Address [address] [facility] 7t [place] [address] Care Team Providers Care Lapeler Name Role Phone Zelda Funez MD Primary Care Provider + Encounter Details Date Type Department Care Team (Latest Contact Info) Description 04/09/2019 Abstract [facility] Dental, Provider, DDS Social History [...] Description 06/04/2025 1:00 PM EDT Office Visit [facility] [address] [place] [address] Jacob, Jolene [address] [place] [address] documented as of this encounter Visit Diagnoses Not on filedocumented in this encounter Care Teams Lapeler Relationship Specialty Start Date End Date Zelda Funez MD [address] [place] [address] PCP - General Family Medicine 06/19/18 documented as of this encounter
--- OUTSIDE RECORDS SUMMARY | 2025-01-07 12:34 | XMS_ITS | Encounter Summary ---
Author Organization [facility] Address [address] [facility] [address] [place] [address] Care Team Providers Care Drink Waiter Name Role Phone Zelda Funez MD Primary Care Provider + Encounter Details Date Type Department Care Team (Late st Contact Info) Description 11/12/2022 Orders Only [facility] [address] [place] [address] Indiana Stone LPN Social History Tobacco Use Types Packs/Day Years [...] Description 06/04/2025 1:00 PM EDT Office Visit [facility] ADULT DENTAL [address] [place] [address] Jacob, Jolene [address] [place] [address] documented as of this encounter Visit Diagnoses Not on filedocumented in this encounter Care Teams Drink Waiter Relationship Specialty Start Date End Date Zelda Funez MD [address] [place] [address] PCP - General Family Medicine 06/19/18 documented as of this encounter
--- OUTSIDE RECORDS SUMMARY | 2025-01-07 12:34 | XMS_ITS | Encounter Summary ---
Author Organization [facility] Address [address] [place] [address] 7t [place] [address] Care Team Providers Care Field Pipelines Supervisor Name Role Phone Zelda Funez MD Primary Care Provider + Reason for Visit * Reason Comments Med Refill Encounter Details Date Type Department Care Team (Late st Contact Info) Description 11/09/2022 Refill [facility] [address] [place] [address] Zelda Funez MD [address] [place] [address] Social History Tobacco Use Types Packs/Day Years [...] Description 06/04/2025 1:00 PM EDT Office Visit [facility] ADULT DENTAL [address] [place] [address] Jolene James [address] [place] [address] documented as of this encounter Visit Diagnoses Not on filedocumented in this encounter Care Teams Field Pipelines Supervisor Relationship Specialty Start Date End Date Zelda Funez MD [address] [place] [address] PCP - General Family Medicine 06/19/18 documented as of this encounter
--- OUTSIDE RECORDS SUMMARY | 2025-01-07 12:34 | XMS_ITS | Encounter Summary ---
Author Organization [employer] [facility] Address [address] [facility] 7t [place] [address] Care Team Providers Care Shuttler Car Name Role Phone Zelda Funez MD Primary Care Provider + Encounter Details Date Type Department Care Team (Late Contact Info) Description 04/07/2023 Orders Only [facility] MED[facility] [address] [place], [place] [phone] Zelda Funez MD [address] [place], [place] [phone] Polyarthralgia (Primary Dx) Social History Tobacco Use Types Packs/Day Years Used Date Smoking Tobacco: Never Smokeless Tobacco: Never Alcohol Use Standard Drinks/Week Comments Yes 0 (1 standard drink = 0.6 oz pur e alcohol) oca Depression Answer Date Recorded Patient Health Questionnaire-2 Score 0 04/04/2023 Sex and Gender Information Value Date Recorded Sex Assigned at Male 08/09/2022 10:19 AM EDT Legal Sex Male 10:19 AM EDT Gender Identity Male 08/09/2022 10:19 AM EDT Sexual Orientation Straight 08/09/2022 10 :19 AM EDT COVID-19 Exposure Response Date Recorded In the last 10 days, have yo u been in contact with someone who was confirmed or suspected to have Coronavirus/COVID-19? No / Unsure 04/04/2023 11:16 AM EDT documented as of this encounter Plan of Treatment Upcoming Encounters Date Type Department Care Team (Late st Contact Info) Description 06/04/2025 1:00 PM EDT Office Visit [facility] ADULT DENT[facility] [address] [place] [address] Jolene James [address] [place] [address] Scheduled Orders Name Type Priority Associated Diagnoses Orde r Schedule QuantiFERON??-TB Gold Plus, 1 Tube Lab Routine Polyarthralgia Expected: 04/07/2023 (Approximate), Expires: 04/07/2024 CBC auto differential Lab Routine Polyarthralgia Expected: 04/07/2023 (Approximate), Expires: 04/07/2024 HIV-1/2 Antigen and Antibodies, Fourth Generation, with Reflexes Lab Routine Polyarthralgia Expected: 04/07/2023 (Approximate), Expires: 04/07/2024 Hepatitis Panel, General Lab Routine Polyarthralgia Expected: 04/07/2023 (Approximate), Expires: 04/07/2024 documented as of this encounter Visit Diagnoses Diagnosis Polyarthralgia- Primary Pain in joint, multiple sites documented in this encounter Care Teams Shuttler Car Relationship Specialty Start Date End Date Zelda Funez MD [address] [place] [id number] PCP - General Family Medicine 06/19/18 documented as of this encounter
--- OUTSIDE RECORDS SUMMARY | 2025-01-07 12:34 | XMS_ITS | Referral Summary ---
Author Organization [facility] Address [address] [place] [address] Care Team Providers Care Library Director Name Role Phone Zelda Funez Primary Care Provider Encounters Date Type Department Care Team Description 12/31/2024 Telephone [facility] [address] [place] [id number] Industrial Maintenance Millwright: Kathy Hines Telephone Intake, Staff 12/21/2024 Refill [facility] [address] [place] [address] Industrial Maintenance Millwright: Moe Ordoñez DO High risk medication use (Primary Dx) 10/09/2024 Orders Only [facility] [address] [place] [address] Industrial Maintenance Millwright: Moe Ordoñez DO from Last 3 Months Allergies No known active allergies Medications amLODIPine [...] by mouth once a week. 96 tablet 12/28/19 25 Discontinued Active Problems Problem Noted Date Diagnosed Date Recurrent umbilical hernia 12/13/2016 Extensor tenosynovitis of right wrist 10/13/2015 Generalized osteoarthritis of multiple sites Rotator cuff tendonitis 07/28/2015 Tennis elbow, right 07/28/2015 Pes cavus, congenital 06/17/2015 Achilles tendonitis 06/17/2015 Bilateral foot pain 06/17/2015 History of pain when walking 06/17/2015 Immunizations Immunization Administration Dates Next Due Influenza, Trivalent, Adjuvanted, PF 09/19/2024 Social History Tobacco Use Types Packs/Day Years [...] Info) Description 03/18/2025 10:00 AM EDT Follow-Up [facility] [address] [place] [phone] Industrial Maintenance Millwright: Moe Ordoñez DO [address] [place] [address] [place] [address] (work) Procedures * Due to [place] [employer] law, this organization might not be sharing negative HIV tests. Procedure Name Priority Date/Time Associated Diagnosis Comments HEPATITIS C ANTIBODY W/REFLEX TO HCV RNA, QUANTITATIVE PCR Routine 08/29/2023 3:43 PM EST High risk medication use BASIC METABOLIC PANEL Routine 01/27/2017 8:21 AM EDT from Last 3 Months or Most Recently Relevant to Health Maintenance Results * Due to [place] [employer] law, this organization might not be sharing negative HIV tests. * Hepatitis C Antibody w/Reflex to HCV RNA, Quantitative PCR (08/29/2023 3:43 PM EST) Hepatitis C Antibody NON-REACT VERN NON-REACT VERN 08/30/2023 3:07 AM EST [employer] Comment: HCV antibody was non-reactive. There is no laboratory evidence of HCV infection. In most cases, no further action is required. However, if recent HCV exposure is suspected, a test for HCV RNA (test code 96015) is suggested. For additional information please refer to http://education.Beatrobo/faq/ATQ03l7 (This link is being provided for informational/ educational purposes only.) Blood Structure of peripheral vein / Unknown Venipuncture / Unknown 08/29/2023 3:43 PM EST 08/29/2023 4:43 PM EST Narrative [facility] - 08/30/2023 3:07 AM EST [facility] Received Date: us Moe Acevedo DO LAB BLOOD ORDERABLES Final Res ult [facility] [address] [facility] 3rd Floor, [place] [address], [place] [phone] [employer] [facility] [address], [place] [address], [place] [phone] * (ABNORMAL) Basic Metabolic Panel (01/27/2017 8:21 AM EDT) Sodium Blood 140 135 - 145 mmol/L [facility] Potassium Blood 4.2 3.5 - 5.3 mmol/L [facility] Chloride Blood 106 97 - 110 mmol/L [facility] Carbon Dioxide 29 24 - 32 mmol/L [facility] Gap 5 5 - 15 [facility] Glucose 105(H) 70 - 99 mg/dL [facility] BUN 18 7 - 23 mg/dL [facility] Creatinine 0.69 0.60 - 1.30 mg/dL [facility] eGFR Non- >60 >60 [facility] Comment: Units = mL/min/1.73 m2 Glomerular [...] Calcium Blood 9.6 8.7 - 10.7 mg/dL [facility] 01/27/2017 8:21 AM EDT 01/27/2017 9:11 AM EDT us Robert Lemos MD LAB BLOOD ORDERABLES Final Res ult [facility] [address] [place] [address], [place] from Last 3 Months or Most Recently Relevant to Health Maintenance Insurance [facility] HSNO/FREE CARE Care Teams Library Director Relationship Specialty Start Date End Date Zelda Funez [address] [place] [phone] PCP - General Internal Medicine 05/02/23
[2025-01-07 12:38] LABS: Basophils Percent Auto 0.6 % (0-2); Eosinophils Absolute Auto 0.2 X10*3/uL (0.0-0.4); Eosinophils Percent Auto 2.8 % (0-4); Hemoglobin 13.8 g/dl (14.0-18.0); Imm Gran Abs Auto 0.02 X10*3/uL (0.00-0.03); Imm Gran Pct Auto 0.3 % (0.0-0.4); Lymphocytes Absolute Auto 1.9 X10*3/uL (1.2-4.9); Lymphocytes Percent Auto 29.8 % (20-40); Mean Corpuscular HGB Conc 32.1 g/dl (31.0-36.0); Mean Corpuscular Hemoglobin 26.9 pg (27.0-33.0); Mean Corpuscular Volume 83.8 fL (80.0-98.0); Monocytes Absolute Auto 0.7 X10*3/uL (0.1-1.2); Monocytes Percent Auto 10.6 % (2-11); Neutrophils Absolute Auto 3.6 x10*3/uL (2.0-8.3); Neutrophils Percent Auto 55.9 % (45-73); Platelet Count 351 X10*3/uL (160-400); Red Blood Count 5.13 X10*6/uL (4.60-5.80); Red Cell Distribution Width 15.1 % (11.0-16.0); White Blood Count 6.4 X10*3/uL (4.8-10.8)
[2025-01-07 12:55] LABS: Alanine Aminotransferase 29 U/L (0-40); Albumin Level 4.3 g/dL (3.5-5.0); Alkaline Phosphatase 53 U/L (39-117); Aspartate Amino Transferase 28 U/L (5-37); Bilirubin Direct 0.2 mg/dL (0.0-0.5); Bilirubin Total 0.5 mg/dL (0.0-1.0); C Reactive Protein 0.19 mg/dL (< or = 0.50); Estimated Glomerular Filt Rate > 60; Total Protein 7.4 g/dL (6.5-8.0)
[2025-01-07 13:16] LABS: Erythrocyte Sedimentation Rate 6 MM/HR (0-15)
== END 2025-01-07 11:02 | disposition home or self-care (01) ==
LOC: HO.HHCL 11:01
PROVIDERS: Visit Provider Internal Medicine
DX: M05.79 Rheumatoid arthritis with rheumatoid factor of multiple sites without organ or systems involvement (principal)
CPT/HCPCS: 36415; 80076; 82565; 85025; 85652; 86140

== ENCOUNTER 2025-10-02 12:41 | Emergency (ER) | payer MEDICAID, OTHER, SELFPAY ==
--- NOTE | 2025-10-02 12:43 | ED.GENADULT ---
HPI - General Adult General Chief complaint: Allergic Reaction Stated complaint: rash, mouth swelling Time Seen by Provider: 10/02/25 15:44 Source: patient, RN notes reviewed and supervisor pumping station Mode of arrival: ambulatory Limitations: language barrier History of Present Illness ED Provider: Yoshi HPI narrative: 59-year-old male presents for evaluation of an itchy rash and facial swelling. Patient reports that his symptoms 1st started on Tuesday. You had a rash that was initially on his face, trunk and legs. He reports that yesterday he had significant upper lip swelling which seems to have improved today. He believes it is still somewhat swollen. He does not have any known allergies pain He reports that he had shrimp Tuesday night in his symptoms 1st started Tuesday morning when he woke up. He reports that he has had seafood in the past without any issues he took Benadryl yesterday with some relief of his symptoms. He has not tried any other new medications denies any new soaps, lotions, detergents he denies any difficulty breathing or swallowing Related Data Previous Rx's ?Medication ?Instructions ?Recorded cyclobenzaprine 10 mg tablet 10 mg PO TID PRN muscle spasm #15 04/28/24 tabs ibuprofen 600 mg tablet 600 mg PO Q6H PRN fever or pain 04/28/24 #30 tabs diphenhydramine HCl 25 mg tablet 50 mg (2 x 25 mg) PO Q6H PRN 10/02/25 (Benadryl Allergy) itching/rash #20 tabs epinephrine 0.3 mg/0.3 mL 0.3 mg (0.3 mL) IM Q10M PRN 10/02/25 injection, auto-injector (EpiPen anaphylaxis #2 ea 2-Tarun) prednisone 20 mg tablet 40 mg (2 x 20 mg) PO DAILY #8 tabs 10/02/25 Allergies Allergy/AdvReac Type Severity Reaction Status Date / Time No Known Allergies Allergy Verified 10/02/25 12:50 Review of Systems Constitutional: Constitutional: Denies body ache(s), Denies chills, Denies fever(s) and Denies headache(s) ENT: Denies headache(s), Denies throat swelling, Denies tongue swelling and Reports other (upper lip swelling) Cardiovascular: Cardiovascular: Denies chest pain and Denies dyspnea on exertion Respiratory: Respiratory: Denies cough and Denies dyspnea on exertion Gastrointestinal: Gastrointestinal: Denies abdominal pain, Denies nausea and Denies vomiting Musculoskeletal: Musculoskeletal: Denies back pain Integumentary/Breasts: Skin/Breast: Reports rash Neurologic: Denies headache(s) Psychiatric: Psychiatric: Denies anxiety Allergic/Immunologic: Allergic/Immunologic: Denies throat swelling and Denies tongue swelling PMFSH Social History Social History Advance Directives: No Advance Directives Information Provided: No Physical Exam ED Vital Signs: Vital Signs - 24 hr 10/02/25 12:47 10/02/25 16:44 Temperature 98.5 F 98.5 F Pulse Rate 122 H 122 H Respiratory Rate 18 18 Blood Pressure 147/85 H 147/85 H Pulse Oximetry 97 97 Oxygen Delivery Method Room Air Room Air BMI result Body Mass Index 30.8 Const General: healthy appearing, comfortable, no acute distress, alert and awake Nutritional Appearance: well nourished Orientation/consciousness: patient oriented x3 HENMT Other: there was no significant facial swelling. There is possibly trace edema to the upper lip but it is difficult to say for certain. No retropharyngeal edema, uvula midline Head: Yes normocephalic and Yes atraumatic Throat: Yes posterior oropharynx normal Eyes Eyelids: Yes eyelids normal Conjunctivae: conjunctivae normal Sclerae: sclerae normal Corneas: corneas normal Pupils: Equal, round and reactive pupils present EOM: EOMs intact bilaterally Neck Neck: Yes full ROM Resp Effort & Inspection: normal respiratory effort, able to speak in complete sentences, no audible wheezes and not labored Auscultation: clear to auscultation bilaterally Cardio Rate: regular rate Rhythm: regular rhythm Skin Other: the patient has scattered urticaria mostly to the left leg, there are a couple of lesions on the trunk. Nothing on the face or neck. General skin exam: elasticity normal Neuro General: patient oriented x3 Cranial nerves: Yes Equal, round and reactive pupils present and Yes Bilaterally intact EOM present Cognition (Neuro): normal cognition Extrem Other: Moving all extremities well without any obvious deformities Course Course Course Narrative: This is a rapid medical exam performed by Nigel Partida NP: Additional HPI, ROS, PE not included below will be deferred to primary provider. Patient is a 59-year-old Ukrainian speaking male presenting with pruritic rash since Tuesday and upper lip swelling since last night. Denies swelling to tongue or difficulty breathing. On amlodipine only for BP. Ate shrimp tuesday night but this is not a known allergy for him. Medications Administered Discontinued Medications Generic Name Dose Route Start Last Admin Trade Name Lisa PRN Reason Stop Dose Admin Diphenhydramine HCl 50 mg 10/02/25 16:21 10/02/25 16:40 Diphenhydramine Hcl 25 Mg Capsule PO 10/02/25 16:22 50 mg ONCE ONE Administration Famotidine 20 mg 10/02/25 16:21 10/02/25 16:39 Famotidine 20 Mg Tablet PO 10/02/25 16:22 20 mg ONCE ONE Administration Prednisone 60 mg 10/02/25 16:21 10/02/25 16:39 Prednisone 20 Mg Tablet PO 10/02/25 16:22 60 mg ONCE ONE Administration Medical Decision Making Medical Decision Making [facility] Narrative: 59-year-old male presents for evaluation of itchy rash in upper lip swelling. He reports in his upper lip was far more swollen yesterday and seems to have improved with Benadryl he treated himself with yesterday. I do not see any obvious edema or evidence of angioedema. There was possibly very trace upper lip edema. There was no stridor on exam. He has some scattered urticaria. Given that his symptoms started 2 days ago and are significantly improved, nearly resolved we will treat him for an allergic reaction but he is stable for discharge. I did prescribe an EpiPen and advised him to avoid eating seafood until he sees an supervisor parachute manufacturing to be tested for food allergies Differential Diagnosis Differential Diagnoses: The differential diagnosis associated with the presentation includes allergic reaction Angioedema Urticaria Anaphylaxis Discharge Plan Discharge Clinical Impression: Allergic reaction Patient Disposition: Home, Self-Care Instructions: General Allergic Reaction (ED), Allergy Testing (ED) Additional Instructions: In his most likely that you had no allergic reaction to the seafood UA on Tuesday. Take Benadryl 50 mg every 6 hours as needed for itching and rash. This will make you drowsy, do not drink alcohol or drive after taking it. Take prednisone 40 mg daily for the next 5 days, your 1st dose was given in the ER. I prescribed an EpiPen to use if you are having any further facial swelling with difficulty breathing or swallowing Do not use the EpiPen for a rash alone You should not have seafood again until you see an supervisor parachute manufacturing for allergy testing Prescriptions: New prednisone 20 mg tablet 40 mg PO DAILY Qty: 8 0RF diphenhydramine HCl [Benadryl Allergy] 25 mg tablet 50 mg PO Q6H PRN (Reason: itching/rash) Qty: 20 0RF epinephrine [EpiPen 2-Tarun] 0.3 mg/0.3 mL auto-injector 0.3 mg IM Q10M PRN (Reason: anaphylaxis) Qty: 2 0RF Rx Instructions: for 2 doses No Action ibuprofen 600 mg tablet 600 mg PO Q6H PRN (Reason: fever or pain) Qty: 30 0RF cyclobenzaprine 10 mg tablet 10 mg PO TID PRN (Reason: muscle spasm) Qty: 15 0RF Referrals: [facility] [Provider Group] Referral Note: ? allergy to seafood [facility] [Outside] Referral Note: ? allergy to seafood Interventions: ED Discharge Assessment Last Done: 10/02/25 16:44 Discharge Date/Time: 10/02/25 16:44 Print Language: Ukrainian
[2025-10-02 12:47] VITALS: BP 147/85; PULSE 122; RESP 18; TEMP 36.9; O2SAT 97; BMI 30.8
--- NOTE | 2025-10-02 12:51 | PC.NURSE ---
no diff breathing. no airway issues.
--- OUTSIDE RECORDS SUMMARY | 2025-10-02 15:51 | XMS_ITS | Encounter Summary ---
Author Organization [employer] Address [address] [facility] 7t [place] [address] Care Team Providers Care Rn Lab Name Role Phone Zelda Funez MD Primary Care Provider + Encounter Details Date Type Department Care Team (Late st Contact Info) Description 04/07/2023 Orders Only [facility] MEDICINE [address] [place], [place] [phone] Zelda Funez MD [address] [place], [place] [phone] Polyarthralgia (Primary Dx) Social History Tobacco Use [...] Care Team (Late st Contact Info) Description 12/10/2025 12:45 PM EST Office Visit [facility] ADULT DENTAL [address] [place], [place] [phone] Jolene James [address] [place], [place] [phone] 02/25/2026 1:00 PM EDT Office Visit [facility] OPTOMETRY [address] [place] [address] Keshia Freeman, OD [address] [place] [address] Scheduled Orders Name Type Priority Associated Diagnoses Orde r Schedule QuantiFERON -TB Gold Plus, 1 Tube Lab Routine Polyarthralgia [...] sites documented in this encounter Care Teams Rn Lab Relationship Specialty Start Date End Date Zelda Funez MD [address] [place] [address] PCP - General Family Medicine 06/19/18 documented as of this encounter
--- OUTSIDE RECORDS SUMMARY | 2025-10-02 15:51 | XMS_ITS | Encounter Summary ---
Author Organization [employer] Address [address] [facility] 7t [place] [address] Care Team Providers Care Telephone Coin Box Collector Name Role Phone Zelda Funez MD Primary Care Provider + Reason for Visit * Reason Onset Date Comments Reschedule 11/08/2023 Encounter Details Date Type Department Care Team ([facility] st Contact Info) Description 11/08/2023 Telephone [facility] MEDICINE [address] [place], [place] [phone] Zelda Funez MD [address] [place], [place] [phone] Reschedule Social History Tobacco Use Types Packs/Day Years Used Date Smoking Tobacco: Never Smokeless Tobacco: Never Alcohol Use Standard Drinks/Week Comments Yes 0 (1 standard drink = 0.6 oz pur e alcohol) oca Housing Stability Answer Date Recorded What is your housing situation today? I have jamarcusnedra robles 07/25/[address] you [...] Description 12/10/2025 12:45 PM EST Office Visit [facility] ADULT DENTAL [address] [place] [address] Jacob, Jolene [address] [place] [address] 02/25/2026 1:00 PM EDT Office Visit [facility] OPTOMETRY [address] [place] [address] Pete, Keshia, OD [address] [place] [address] documented as of this encounter Visit Diagnoses Not on filedocumented in this encounter Care Teams Telephone Coin Box Collector Relationship Specialty Start Date End Date Zelda Funez MD [address] [place] [address] PCP - General Family Medicine 06/19/18 documented as of this encounter
--- OUTSIDE RECORDS SUMMARY | 2025-10-02 15:51 | XMS_ITS | Encounter Summary ---
Author Organization [facility] Address [address] [facility] 7[address] [place] [address] Care Team Providers Care Patient Registration Representative Name Role Phone Zelda Funez MD Primary Care Provider + Reason for Visit * Reason Comments Med Refill Encounter Details Date Type Department Care Team (Late st Contact Info) Description 11/09/2022 Refill [facility] [address] [place] [address] Zelda Funez MD [address] [place] [address] Social History Tobacco Use Types Packs/Day Years [...] Description 12/10/2025 12:45 PM EST Office Visit [facility] ADULT DENTAL [address] [place] [address] Jacob, Jolene [address] [place] [address] 02/25/2026 1:00 PM EDT Office Visit [facility] OPTOMETRY [address] [place] [address] Pete, Keshia, OD [address] [place] [address] documented as of this encounter Visit Diagnoses Not on filedocumented in this encounter Care Teams Patient Registration Representative Relationship Specialty Start Date End Date Zelda Funez MD [address] [place] [phone] PCP - General Family Medicine 06/19/18 documented as of this encounter
--- OUTSIDE RECORDS SUMMARY | 2025-10-02 15:51 | XMS_ITS | Clinical Summary ---
Author Organization [facility] Address [address] [address] Phone Care Team Providers Care Online Advertising Director Name Role Phone Zelda Funez MD Primary Care Provider + Allergies No known active allergies Medications amLODIPine (NORVASC) 10 MG tablet Take 10 mg by mouth daily. Active loperamide (IMODIUM) 2 mg capsule Take 1 capsule (2 mg total) by mouth 4 (four) times a day as needed for diarrhea. 30 capsule 04/16/2023 Active Social History Tobacco Use Types Packs/Day Years Used Date Smoking Tobacco: Never Smokeless Tobacco: Never Alcohol Use Standard Drinks/Week Comments Yes 0 (1 standard drink = 0.6 oz pur e alcohol) some Education Answer Date Recorded Are you interested in more education? Not on marcela e 02/04/2023 Are you concerned about learning? Not on file 02/04/2023 No 02/04/2023 No 02/04/2023 Digital Access Answer Date Recorded No 03/05/2023 No 03/05/2023 Reliable internet access at home? Not on file 03/05/2023 Device with a working camera? Not on file Sex and Gender Information Value Date Recorded Sex Assigned at Not on file Legal Sex Male 9:38 PM EDT Gender Identity Not on file Sexual Orientation Not on file Last Filed Vital Signs Vital Sign Reading Time Taken Comments Blood Pressure 133/82 04/16/2023 10:36 PM EDT Pulse 84 04/16/2023 10:36 PM EDT Temperature 36.5 C (97.7 F) 04/16/2023 10:36 PM EDT Respiratory Rate 16 04/16/2023 10:36 PM EDT Oxygen Saturation 100% 04/16/2023 10:36 PM EDT Inhaled Oxygen Concentration - - Weight 81.6 kg (180 lb) 09/14/2020 9:39 AM EST Height - - Body Mass Index - - Plan of Treatment Health Maintenance Due Date Last Done Comments LIPID PANEL 1967 DEPRESSION SCREENING 1979 HEPATITIS C SCREENING 12/24/1985 HIV ONE-TIME SCREENING (18-65 YEARS) 12/24/1985 COLOGUARD 12/24/2012 COLONOSCOPY 12/24/2012 COLORECTAL CANCER SCREENING 12/24/2012 FIT TEST 12/24/2012 FOBT 12/24/2012 SIGMOIDOSCOPY 12/24/2012 VIRTUAL COLONOSCOPY 12/24/2012 PNEUMOCOCCAL VACCINES (50+ years) (1 of 1 - PCV) 12/24/2017 ZOSTER VACCINES (1 of 2) 12/24/2017 Adult Td,Tdap Booster 11/07/2022 11/07/2012 INFLUENZA VACCINE (#1) 2025 9, 07/25/2018, 08/30/2017, Additional history exists COVID-19 VACCINE (3 - 2024- season) 2025 02/24/2021, 01/27/2021 RSV VACCINE (1 - 1-dose 75+ series) 12/24/2042 SMOKING STATUS SCREENING (Once After 26 Yrs) Completed 04/16/2023 HEPATITIS A VACCINES Aged Out No long er eligible based on patient's age to complete this topic HIB VACCINES Aged Out No longer eligi ble based on patient's age to complete this topic MENINGOCOCCAL VACCINES (ACWY) Aged Out No longer eligible based on patient's age to complete this topic MENINGOCOCCAL VACCINES (B) Aged Out N o longer eligible based on patient's age to complete this topic Medical Devices Not on file Insurance [facility] [employer] FULL [employer] LIMITED [facility] [employer] FULL F[employer] LIMITED SAFETY NET FULL [employer] NET FULL Member Subscriber Plan / Payer (Ef fective 2019-Present) Name:Javed Campbell Relation to Subscriber:Self Name:Javed Campbell Payer ID:Not on file Group ID:Not on file Type:Medicaid Address: [place] [id number] Frequent [employer] NET FULL [facility] LIMITED [facility] [employer] FULL [employer] LIMITED [facility] [employer] FULL [employer] LIMITED [facility] NET FULL [facility] LIMITED [facility] FULL Care Teams Online Advertising Director Relationship Specialty Start Date End Date Zelda Funez MD [address] [place] [address] [address] [place] [address] PCP - General Internal Medicine 09/14/20 Additional Source Comments The information contained in this document represents components of the legal health record. It is not the complete legal health record.[facility]
--- OUTSIDE RECORDS SUMMARY | 2025-10-02 15:51 | XMS_ITS | Clinical Summary ---
Author Organization [facility] Address [address] [place] [address] Care Team Providers Care Truck Manager Name Role Phone ArminZelda beyer Primary Care Provider Allergies No known active allergies Medications amLODIPine (NORVASC) 5 mg tablet Take 5 mg by mouth daily. Active cholecalciferol (VITAMIN D3) 2,000 unit tablet Take 1 tablet (2,000 Units total) by mouth once a day. 90 tablet 1 4 Active Additional Information Patient not taking.Reported on 06/17/2025 methotrexate (TREXALL) 2.5 mg tablet TAKE 8 TABLETS BY MOUTH ONCE WEEKLY 96 tablet 5 Active Additional Information Patient not taking.Reported on 06/17/2025 folic acid (FOLVITE) 1 mg tablet TAKE 1 TABLET(1 MG) BY MOUTH DAILY 90 tablet 1 5 Active predniSONE (DELTASONE) 10 mg tablet 4 tabs po x 2 days , 3 tabs po x 2 days, 2 tabs po x 2 days. 1 tab po x 2 days 30 tablet 5 Active ergocalciferol (VITAMIN D2) 1,250 mcg (50,000 unit) capsule Take 1 capsule (50,000 Units total) by mouth once a week for 8 doses. 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 Achilles tendonitis 06/17/2015 Bilateral foot pain 06/17/2015 History of pain when walking 06/17/2015 Immunizations Immunization Administration Dates Next Due Influenza, Trivalent, Adjuvanted, PF (FLUAD) 08/2024 Family History Medical History Relation Name Comments [...] Sign Reading Time Taken Comments Blood Pressure 120/75 06/17/2025 7:47 AM EDT Pulse 80 06/17/2025 7:47 AM EDT Temperature 36.6 C (97.9 F) 06/17/2025 7:47 AM EDT Respiratory Rate - - Oxygen Saturation - - Inhaled Oxygen Concentration - - Weight 87.5 kg (193 lb) 06/17/2025 7:47 AM EDT Height 167.6 cm (5' 6 ) 06/17/2025 7:47 AM EDT Body Mass Index 31.15 06/17/2025 7:47 AM EDT Plan of Treatment Upcoming Encounters Date Type Department Care Team (Late st Contact Info) Description 01/01/2026 10:00 AM EDT Follow-Up [facility] [address] [place] [address] Dust Collector Treater: Moe Ordoñez DO [address] [facility] [place] [address] Health Maintenance Due Date Last Done Comments Cologuard 1967 Colon Cancer Screening 1967 Colonoscopy 1967 FOBT / Fit Test 1967 HIV Screening 1967 Sigmoidoscopy 1967 Pneumococcal Vaccine: 50+ Ye ars (1 of 1 - PCV) 12/24/2017 Zoster Vaccines (1 of 2) 12/24/2017 04/15/2009, 11/11 Alcohol/Substance Use Screening 10/10/2024 Depression Screening and Follow-Up 10/10/2024 Social Drivers of Health Tyra ual Screening 10/10/2024 Influenza Vaccine (#1) 2025 , 07/26/2023, 08/21/2019, Additional history exists COVID-19 Vaccine (3 - 2024-2 6 season) 2025 02/24/2021, 01/27/2021 Diabetes Screening 04/16/2026 04/16/2023, 01/27/2017 DTaP,Tdap,and Td Vaccines (3 - Td or Tdap) 12/12/2033 12/13/2023, 11/07/2012 Hepatitis B Vaccines Completed 05/01/2010, 12/31/2008, 12/03/2008 Hepatitis C Screening Completed 08/29/2023 Procedures * Due to [place] [employer] law, this organization might not be sharing negative HIV tests. Procedure Name Priority Date/Time Associated Diagnosis Comments HEPATITIS C ANTIBODY W/REFLEX TO HCV RNA, QUANTITATIVE PCR Routine 08/29/2023 3:43 PM EST High risk medication use BASIC METABOLIC PANEL Routine 01/27/2017 8:21 AM EDT from Last 3 Months or Most Recently Relevant to Health Maintenance Results * Due to [place] [employer] law, this organization might not be sharing negative HIV tests. * Hepatitis C Antibody w/Reflex to HCV RNA, Quantitative PCR (08/29/2023 3:43 PM EST) Hepatitis C Antibody NON-REACT VERN NON-REACT VERN 08/30/2023 3:07 AM EST Testif Comment: HCV antibody was non-reactive. There is no laboratory evidence of HCV infection. In most cases, no further action is required. However, if recent HCV exposure is suspected, a test for HCV RNA (test code 63968) is suggested. For additional information please refer to http://education.BeiBei/faq/DIP79d8 (This link is being provided for informational/ educational purposes only.) Blood Structure of peripheral vein / Unknown Venipuncture / Unknown 08/29/2023 3:43 PM EST 08/29/2023 4:43 PM EST Narrative JOHNNY ROJAS - 08/30/2023 3:07 AM EST [facility] Received Date: us Moe Acevedo DO LAB BLOOD ORDERABLES Final Res ult [facility] [place] [address] [facility] 3rd Floor, [place] [address], [place] [employer] [facility] [address] [facility] 3rd Floor, [place] [address], * (ABNORMAL) Basic Metabolic Panel (01/27/2017 8:21 AM EDT) Sodium Blood 140 135 - 145 mmol/L [facility] Potassium Blood 4.2 3.5 - 5.3 mmol/L [facility] Chloride Blood 106 97 - 110 mmol/L [facility] Carbon Dioxide 29 24 - 32 mmol/L [facility] Gap 5 5 - 15 [facility] Glucose 105(H) 70 - 99 mg/dL [facility] BUN 18 7 - 23 mg/dL [facility] Creatinine 0.69 0.60 - 1.30 mg/dL [facility] eGFR Non- >60 >60 [facility] Comment: Units = mL/min/1.73 m2 Glomerular Filtration [...] Calcium Blood 9.6 8.7 - 10.7 mg/dL [facility] 01/27/2017 8:21 AM EDT 01/27/2017 9:11 AM EDT us Robert Lemos MD LAB BLOOD ORDERABLES Final Res ult [facility] [address] [place] [address], [place] from Last 3 Months or Most Recently Relevant to Health Maintenance Insurance [facility] HSNO/FREE CARE Care Teams Truck Manager Relationship Specialty Start Date End Date Zelda Funez [address] [place] [id number] PCP - General Internal Medicine 05/02/23
--- OUTSIDE RECORDS SUMMARY | 2025-10-02 15:51 | XMS_ITS | Clinical Summary ---
Author Organization [employer] Address [address] [facility] [address] [place] [address] Care Team Providers Care Environmental Compliance Engineer Name Role Phone Zelda Funez MD Primary Care Provider + Allergies No known active allergies Medications acetaminophen (Tylenol 8 Hour) 650 MG ER tabletIndication s:Polyarthralgia 1-2 tab po bid x 2w then q8h prn pain. Do not crush, chew, or split. 120 tablet 1 3 Active meloxicam (Mobic) 15 MG tabletIndication s:Polyarthralgia TAKE 1 TABLET(15 MG) BY MOUTH IN THE MORNING 30 tablet 3 Active Additional Information Patient not taking.Reported on 06/04/2025 cholecalciferol (Vitamin D-3) 50 MCG (1999 UT) tablet Take 1 tablet by mouth in the morning. 4 Active methotrexate 2.5 MG tablet Take 20 mg by mouth 1 (one) time per week. 4 Active folic acid (Folvite) 1 MG tablet Take 1 mg by mouth Once per day. 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 Missing teeth, acquired 06/14/2023 Dental calculus 05/17/2023 Localized gingival recession [...] PRN with me. APpointment for rheuamtology at [facility] scheduled for 08/05/23 at 1 pm. Pt [...] Encounters Date Type Department Care Team Description 07/09/2025 Telephone [facility] ADULT [facility] [address] [place] [address] Jolene James 07/03/2025 Telephone [facility] [address] [place] [address] Jolene James from Last 3 Months Immunizations Immunization Administration Dates Next Due Hep B, adult [...] Sign Reading Time Taken Comments Blood Pressure 126/78 06/04/2025 1:07 PM EDT Pulse 84 12/31/2024 9:32 AM EDT Temperature 35.9 C (96.7 F) 12/31/2024 9:32 AM EDT Respiratory Rate 16 05/07/2024 11:01 AM EDT [...] Description 12/10/2025 12:45 PM EST Office Visit [facility] [address] [place] [address] Jacob, Jolene [address] [place] [address] 02/25/2026 1:00 PM EDT Office Visit [facility] OPTOM[facility] [address] [place] [address] Pete, Keshia, OD [address] [place] [address] Health Maintenance Due Date Last Done Comments CT Colonography 1967 Colonoscopy 1967 Colorectal Cancer Screening 1967 FIT DNA/Cologuard 1967 FIT 1967 FOBT 1967 Sigmoidoscopy 1967 Disability Screening 1967 Alcohol/Substance Use Screening 1979 Pneumococcal Vaccine: 50+ Years (1 of 1 - PCV) 12/24/2017 Zoster Vaccines (1 of 2) 12/24/2017 Depression Screening 04/04/2024 04/04/2023, 04/04/20 23 Dental Oral Exam 11/30/2024 05/29/2024, 02/2023, 02/23/2022, Additional history exists COVID-19 Vaccine ( - 2024- season) 2025 02/24/2021, 01/27/2021 Influenza Vaccine (#1) 2025 , 07/26/2023, 08/21/2019, Additional history exists Dental Prophylaxis 12/06/2025 06/04/2025, 0 12/03/2024, 05/29/2024, Additional history exists SDOH Screening 12/24/2025 12/24/2024 Dental X-Ray: Full Mouth 05/18/2026 023, 02/23/2022, 04/21/2015 Tobacco Screening 06/04/2026 06/04/2025 Dental X-Ray: Bitewings 06/05/2026 06/04/20, 05/29/2024, 05/17/2023, Additional history exists Lipid Panel 09/07/2026 09/07/2021, 04/01/2020 DTaP/Tdap/Td Vaccines (3 - Td or Tdap) 12/12/2033 12/13/2023, 11/07/2012 RSV Patients and Patients Aged 60 years or older (1 - 1-dose 75+ series) 12/24/2042 Hepatitis B Vaccines Completed 05/01/2010, 12/31/2008, 12/03/2008 HIV Screening Completed 04/25/2023 Hepatitis C Screening Completed 04/25/2023 HIB Vaccines Aged Out No longer eligi [...] patient's age to complete this topic Meningococcal B Vaccine Aged Out No l onger eligible based on patient's age to complete [...] Procedure Name Priority Date/Time Associated Diagnosis Comments PROPHYLAXIS - ADULT Routine 06/04/2025 1 :00 PM EDT Localized gingival recession Dental calculus BITEWINGS - 4 RADIOGRAPHIC IMAGES Routine 06/04/2025 1:00 PM EDT Localized gingival recession Dental calculus Missing teeth, acquired PERIODIC ORAL EVALUATION - ESTABLISHED PATIENT Routine [...] Recently Relevant to Health Maintenance Results * HIV Ab/Ag (JARVIS SANCHEZ) (04/25/2023 9:09 AM EDT) HIV AB/AG Nonreactive Nonreactive [facility] Comment:HIV-1 p24 Ag and/or HIV-1/HIV-2 Ab not detected.A test result that is nonreactive does not exclude thepossibility of exposure to or infection with HIV-1 and/orHIV-2. Nonreactive results in this assay for individualswith prior exposure to HIV-1 and/or HIV-2 may be due toantigen and antibody levels that are below the limit ofdetection of this assay.The [employer] HIV Ag/Ab Combo assay result andsupplemental assay results should be interpreted inconjunction with the patient's clinical presentation,history and other laboratory results. If the results areinconsistent with clinical evidence, additional testing issuggested to confirm the result. 04/25/2023 9:09 AM EDT 04/25/2023 11:44 AM EDT [facility] External Provider LAB BLO OD ORDERABLES Final Result [facility] [address] [place] [phone] * Hepatitis Panel, General (04/25/2023 9:09 AM EDT) Hepatitis A IgM Nonreactive Nonreactive [facility] Comment:IgM antibodies to LANDAVERDE V not detected; does not exclude earlyacute or recovered HAV infection. ~Hepatitis B Surface Antibody REACTIVE Nonreactive [facility] Comment:REACTIVE: > 11.99 mI U/mL Hepatitis B Core Antibody Nonreactive Nonreactive [facility] Hepatitis C Antibody Nonreactive Nonreactive [facility] Comment:Antibodies to HCV no t detected; does not exclude early acuteHCV infection. Hepatitis B Surface Ag Negative Negative [facility] 04/25/2023 9:09 AM EDT 04/25/2023 11:44 AM EDT [facility] External Provider LAB BLO OD ORDERABLES Final Result Performing Organization Address [facility] Co de Phone Number [facility] [address] [place] [address] [phone] * (ABNORMAL) LIPID PANEL, STANDARD (09/07/2021 10:00 AM EST) Chol/HDLC Ratio 4.6 <5.0 (calc) [facility] Cholesterol, Total 185 <200 mg/dL [facility] HDL Cholesterol 40 > OR = 40 mg/dL [facility] LDL Cholesterol 119(H) mg/dL (calc) [facility] Comment: Reference range: <100 Desirable range <100 mg/dL for primary prevention; <70 mg/dL for patients with CHD or diabetic patients with > or = 2 CHD risk factors. LDL-C is now calculated using the Dawson-Monzon calculation, which is a validated novel method providing better accuracy than the Friedewald equation in the estimation of LDL-C. Dawson SS et al. AXEL. 2013;310(19): 6465-6859 (http://education.Powered Outcomes.Manas Informatic/faq/YNC570) Non-HDL Cholesterol 145(H) <130 mg/dL (calc) [facility] Comment: For patients with diabetes plus 1 major ASCVD risk factor, treating to a non-HDL-C goal of <100 mg/dL (LDL-C of <70 mg/dL) is considered a therapeutic option. Triglycerides 149 <150 mg/dL [facility] 09/07/2021 10:0 0 AM EST Zelda Funez MD LAB BLOOD ORDERABLES Fin al Result [facility] [address] from Last 3 Months or Most Recently Relevant to Health Maintenance Insurance [place] [facility] [facility] MEDICAID LIMITED ADULT DENTAL - HSN FULL (MEDICAID) Care Teams Environmental Compliance Engineer Relationship Specialty Start Date End Date Zelda Funez MD [address] [place] [phone] PCP - General Family Medicine 06/19/18
--- OUTSIDE RECORDS SUMMARY | 2025-10-02 15:51 | XMS_ITS | Encounter Summary ---
Author Organization [employer] Address [address] [facility] [address] [place] [address] Care Team Providers Care Coordinate Measuring Equipment Operator Name Role Phone Zelda Funez MD Primary Care Provider + Encounter Details Date Type Department Care Team (Late st Contact Info) Description 11/12/2022 Orders Only [facility] MED & PEDS [address] [place] [address] Indiana Stone LPN Social History Tobacco Use [...] Description 12/10/2025 12:45 PM EST Office Visit [facility] ADULT DENTAL [address] [place] [address] Jacob, Jolene [address] [place] [address] 02/25/2026 1:00 PM EDT Office Visit [facility] OPTOMETRY [address] [place] [address] PeteKeshia hauser, OD [address] [place] [address] documented as of this encounter Visit Diagnoses Not on filedocumented in this encounter Care Teams Coordinate Measuring Equipment Operator Relationship Specialty Start Date End Date Zelda Funez MD [address] [place] [address] PCP - General Family Medicine 06/19/18 documented as of this encounter
--- OUTSIDE RECORDS SUMMARY | 2025-10-02 15:51 | XMS_ITS | Encounter Summary ---
Author Organization [facility] Address [address] [facility] [address] [place] [address] Care Team Providers Care Bike Assembler Name Role Phone Zelda Funez MD Primary Care Provider + Encounter Details Date Type Department Care Team (Latest Contact Info) Description 04/09/2019 Abstract [facility] CONVERSIONS Dental, Provider, DDS Social History [...] Description 12/10/2025 12:45 PM EST Office Visit [facility] ADULT DENTAL [address] [place] [address] Jacob, Jolene [address] [place] [address] 02/25/2026 1:00 PM EDT Office Visit [facility] OPTOMETRY [address] [place] [address] Pete, Keshia, OD [address] [place] [address] documented as of this encounter Visit Diagnoses Not on filedocumented in this encounter Care Teams Bike Assembler Relationship Specialty Start Date End Date Zelda Funez MD [address] [place] [address] PCP - General Family Medicine 06/19/18 documented as of this encounter
--- OUTSIDE RECORDS SUMMARY | 2025-10-02 15:51 | XMS_ITS | Encounter Summary ---
Author Organization [facility] Address [address] [facility] [address] [place] [address] Care Team Providers Care Assistant Surveyor Name Role Phone Zelda Funez MD Primary Care Provider + Encounter Details Date Type Department Care Team (Latest Contact Info) Description 02/23/2022 Abstract [facility] CONVERSION[facility] Dental, Provider, DDS Social History Tobacco [...] Description 12/10/2025 12:45 PM EST Office Visit [facility] ADULT [facility] [address] [place] [address] Jacob, Jolene [address] [place] [address] 02/25/2026 1:00 PM EDT Office Visit [facility] OPTOMETRY [address] [place] [address] Pete, Keshia, OD [address] [place] [address] documented as of this encounter Visit Diagnoses Not on filedocumented in this encounter Care Teams Assistant Surveyor Relationship Specialty Start Date End Date Zelda Funez MD [address] [place] [address] PCP - General Family Medicine 06/19/18 documented as of this encounter
[2025-10-02 16:44] VITALS: BP 147/85; PULSE 122; RESP 18; TEMP 36.9; O2SAT 97
== END 2025-10-02 16:44 | disposition home or self-care (01) ==
PROVIDERS: Emergency Provider Emergency Medicine; PCP Internal Medicine
DX: T78.40XA Allergy, unspecified, initial encounter (principal); R21 Rash and other nonspecific skin eruption; X58.XXXA Exposure to other specified factors, initial encounter
CPT/HCPCS: 99282; 99283